=== PATIENT | female | born 1960 | race Caucasian/White ===

== ENCOUNTER → 2018-03-08 | Outpatient (CLI) | payer BC ==
[2015-05-30 16:43] VITALS: BMI 31.5
[~2018-03-08] MED LIST: BUPR300T55 PO; CHOL200025 PO; CRAN500C11 PO; KET10 PO; LISI-351 PO; LOR5/325 PO; MULT1CAP41 PO
[2018-03-08 10:33] LABS: PLATELET COUNT, AUTOMATED 382 K/uL (150-450)
[2018-03-08 10:51] LABS: LDL CHOLESTEROL 84 mg/dl
== END ==
LOC: LAB 10:15
PROVIDERS: ATTEND Nurse Practitioner Psychiatric/Mental Health
DX: Z00.00 Encounter for general adult medical examination without abnormal findings (principal)
CPT/HCPCS: 36415; 82040; 82247; 82310; 82374; 82435; 82465; 82565; 82947; 83718; 84075; 84132; 84155; 84295; 84443; 84450; 84460; 84478; 84520; 85025

== ENCOUNTER 2018-08-16 12:54 | Emergency (ER) | payer BC ==
[2015-05-30 16:43] VITALS: Wt 80.7 kg
--- NOTE | 2018-08-16 13:07 | ER Report ---
History and Physical Time Seen By MD: 13:07 HPI/ROS CHIEF COMPLAINT: Left lower quadrant abdominal pain HISTORY OF PRESENT ILLNESS: 57-year-old female patient presents to emergency room with complaint of left lower quadrant abdominal pain. Patient states that this started today. She states she went to see her primary care provider who evaluated her and referred her to the emergency room. Patient states that she has pain to the left lower quadrant. She states is nothing seems to make the pain worse or better. She states she does have worsening pain with urination. She denies having any nausea, vomiting or diarrhea. Patient states she did have a fever while she was seen at her primary care provider, 100.6. Patient this time is afebrile. REVIEW OF SYSTEMS: Respiratory: No cough, no dyspnea. Cardiovascular: No chest pain, no palpitations. Gastrointestinal: As noted above Musculoskeletal: No back pain. Allergies: Coded Allergies: No Known Drug Allergies (Verified , 07/24/09) Home Meds Active Scripts Hydrocodone Bit/Acetaminophen (HYDROCODON-ACETAMINOPHEN 5-325) 1 Each Tablet, 1 EACH PO Q4-6H PRN for PAIN, #12 TAB Prov:AXEL SEALS [facility] 08/16/18 Metronidazole (FLAGYL) 500 Mg Tablet, 500 MG PO TID, #30 TAB Prov:AXEL SEALSP 08/16/18 Ciprofloxacin Hcl 500 Mg Tab (CIPRO 500 MG TAB) 500 Mg Tablet, 500 MG PO BID, #20 TAB Prov:AXEL SEALS [facility] 08/16/18 Reported Medications Cranberry Extract (CRANBERRY) 500 Mg Capsule, 500 MG PO DAILY, CAPSULE 05/28/15 Cholecalciferol (Vitamin D3) (VITAMIN D3) 2,000 Unit Capsule, 2000 UNIT PO DAILY, CAPSULE 05/28/15 Lisinopril/Hydrochlorothiazide (LISINOPRIL-HCTZ 10-12.5 MG TAB) 1 Each Tablet, 0.5 TAB PO DAILY 05/28/15 Multivitamins W-Minerals (Multivitamin) 1 Cap Capsule, 1 CAP PO DAILY, 0 Refills 07/24/09 Bupropion Hcl (Wellbutrin Xl) 300 Mg Tab.sr.24h, 300 MG PO QDAY, 0 Refills 07/24/09 Discontinued Scripts Hydrocodone Bit/Acetaminophen (HYDROCODON-ACETAMINOPHEN 5-325) 1 Each Tablet, 1 EACH PO Q4-6H, #30 TAB Prov:TARUN LUCIANO MD 05/30/15 Ketorolac Tromethamine (KETOROLAC TROMETHAMINE) 10 Mg Tab, 10 MG PO Q6H, #14 TAB Prov:TARUN LUCIANO MD 05/30/15 Past Medical/Surgical History Patient has a past medical history of hypertension, UTI, generalized arthritis, degenerative disc disease, alcohol use, depression, anxiety. Patient has a surgical history of hysterectomy, abdominal surgery. Reviewed Nurses Notes: Yes Hx Smoking: No Smoking Status: Never Smoker Hx Alcohol Use: Yes Constitutional Vital Sign - Last 24 Hours 08/16/18 08/16/18 08/16/18 08/16/18 13:03 13:07 13:09 13:24 Temp 99.5 Pulse 126 126 ??? Resp 18 16 B/P (MAP) 152/108 152/108 (123) Pulse Ox 90 92 O2 Delivery Room Air 08/16/18 08/16/18 08/16/18 08/16/18 13:28 13:30 13:39 13:54 Pulse 102 ??? Resp 12 B/P (MAP) 109/85 (93) 105/77 (86) Pulse Ox 87 08/16/18 08/16/18 08/16/18 08/16/18 14:00 14:09 14:24 14:30 Pulse 94 91 Resp 13 12 B/P (MAP) 109/83 (92) 119/85 (96) Pulse Ox 87 90 08/16/18 14:39 Pulse 89 Resp 13 Pulse Ox 87 Physical Exam General Appearance: The patient is alert, has no immediate need for airway protection and no current signs of toxicity. Respiratory: Chest is non tender, lungs are clear to auscultation. Cardiac: regular rate and rhythm Gastrointestinal: Abdomen is soft and tender in the left lower quadrant, no masses, bowel sounds normal. Musculoskeletal: Neck: Neck is supple and non tender. Extremities have full range of motion and are non tender. Skin: No rashes or lesions. DIFFERENTIAL DIAGNOSIS: After history and physical exam differential diagnosis was considered for abdominal pain including but not limited to appendicitis, cholecystitis, gastritis and urinary tract infection. Included in the differential is kidney stone. Medical Decision Making Data Points Result Diagram: 08/16/18 1325 08/16/18 1325 Laboratory Hematology Test 08/16/18 13:00 08/16/18 13:25 Urine Color Yellow Urine Clarity Clear Urine pH 6.0 pH (4.8-9.5) Urine Specific Randolph 1.014 Urine Protein Negative mg/dL (NEGATIVE) Urine Glucose (UA) Negative mg/dL (NEGATIVE) Urine Ketones Trace mg/dL (NEGATIVE) Urine Blood Small (NEGATIVE) Urine Nitrite Negative (NEGATIVE) Urine Bilirubin Negative (NEGATIVE) Urine Urobilinogen Negative mg/dL (0.2-1.9) Urine Leukocyte Esterase Negative (NEGATIVE) Urine RBC <1 /HPF (0-2/HPF) Urine WBC <1 /HPF (0-5/HPF) Urine Squamous Epithelial Cells Many /LPF (</=FEW) Urine Bacteria Negative /HPF (NONE-FEW) Urine Mucus None /HPF (NONE-FEW) Red Blood Count 4.93 M/uL (4.17-5.56) Mean Corpuscular Volume 88.9 fL (80.0-96.0) Mean Corpuscular Hemoglobin 30.6 pg (26.0-33.0) Mean Corpuscular Hemoglobin Concent 34.4 g/dL (32.0-36.0) Red Cell Distribution Width 12.6 % (11.5-14.5) Mean Platelet Volume 7.3 fL (7.2-11.1) Neutrophils (%) (Auto) 77.3 % (39.4-72.5) Lymphocytes (%) (Auto) 14.0 % (17.6-49.6) Monocytes (%) (Auto) 7.7 % (4.1-12.4) Eosinophils (%) (Auto) 0.2 % (0.4-6.7) Basophils (%) (Auto) 0.8 % (0.3-1.4) Nucleated RBC Relative Count (auto) 0.0 /100WBC Neutrophils # (Auto) 15.0 K/uL (2.0-7.4) Lymphocytes # (Auto) 2.7 K/uL (1.3-3.6) Monocytes # (Auto) 1.5 K/uL (0.3-1.0) Eosinophils # (Auto) 0.0 K/uL (0.0-0.5) Basophils # (Auto) 0.2 K/uL (0.0-0.1) Nucleated RBC Absolute Count (auto) 0.01 K/uL Erythrocyte Sedimentation Rate 38 mm/HOUR (0-30) Sodium Level 138 mmol/L (137-145) Potassium Level 4.0 mmol/L (3.5-5.0) Chloride Level 104 mmol/L (98-107) Carbon Dioxide Level 23 mmol/L (22-31) Blood Urea Nitrogen 13 mg/dl (7-18) Creatinine 0.90 mg/dl (0.52-1.04) Glomerular Filtration Rate Calc > 60.0 Random Glucose 111 mg/dl (75-110) Calcium Level 10.0 mg/dl (8.4-10.2) Total Bilirubin 1.0 mg/dl (0.2-1.3) Aspartate Amino Transf (AST/SGOT) 17 U/L (0-35) Alanine Aminotransferase (ALT/SGPT) 20 U/L (0-56) Alkaline Phosphatase 92 U/L (0-126) C-Reactive Protein 5.0 mg/dl (<1.0) Total Protein 8.2 g/dl (6.3-8.2) Albumin 4.6 g/dl (3.5-5.0) Chemistry Test 08/16/18 13:00 08/16/18 13:25 Urine Color Yellow Urine Clarity Clear Urine pH 6.0 pH (4.8-9.5) Urine Specific Randolph 1.014 Urine Protein Negative mg/dL (NEGATIVE) Urine Glucose (UA) Negative mg/dL (NEGATIVE) Urine Ketones Trace mg/dL (NEGATIVE) Urine Blood Small (NEGATIVE) Urine Nitrite Negative (NEGATIVE) Urine Bilirubin Negative (NEGATIVE) Urine Urobilinogen Negative mg/dL (0.2-1.9) Urine Leukocyte Esterase Negative (NEGATIVE) Urine RBC <1 /HPF (0-2/HPF) Urine WBC <1 /HPF (0-5/HPF) Urine Squamous Epithelial Cells Many /LPF (</=FEW) Urine Bacteria Negative /HPF (NONE-FEW) Urine Mucus None /HPF (NONE-FEW) White Blood Count 19.4 k/uL (4.5-11.0) Red Blood Count 4.93 M/uL (4.17-5.56) Hemoglobin 15.1 g/dL (12.0-16.0) Hematocrit 43.9 % (34.0-47.0) Mean Corpuscular Volume 88.9 fL (80.0-96.0) Mean Corpuscular Hemoglobin 30.6 pg (26.0-33.0) Mean Corpuscular Hemoglobin Concent 34.4 g/dL (32.0-36.0) Red Cell Distribution Width 12.6 % (11.5-14.5) Platelet Count 417 K/uL (150-450) Mean Platelet Volume 7.3 fL (7.2-11.1) Neutrophils (%) (Auto) 77.3 % (39.4-72.5) Lymphocytes (%) (Auto) 14.0 % (17.6-49.6) Monocytes (%) (Auto) 7.7 % (4.1-12.4) Eosinophils (%) (Auto) 0.2 % (0.4-6.7) Basophils (%) (Auto) 0.8 % (0.3-1.4) Nucleated RBC Relative Count (auto) 0.0 /100WBC Neutrophils # (Auto) 15.0 K/uL (2.0-7.4) Lymphocytes # (Auto) 2.7 K/uL (1.3-3.6) Monocytes # (Auto) 1.5 K/uL (0.3-1.0) Eosinophils # (Auto) 0.0 K/uL (0.0-0.5) Basophils # (Auto) 0.2 K/uL (0.0-0.1) Nucleated RBC Absolute Count (auto) 0.01 K/uL Erythrocyte Sedimentation Rate 38 mm/HOUR (0-30) Glomerular Filtration Rate Calc > 60.0 Calcium Level 10.0 mg/dl (8.4-10.2) Total Bilirubin 1.0 mg/dl (0.2-1.3) Aspartate Amino Transf (AST/SGOT) 17 U/L (0-35) Alanine Aminotransferase (ALT/SGPT) 20 U/L (0-56) Alkaline Phosphatase 92 U/L (0-126) C-Reactive Protein 5.0 mg/dl (<1.0) Total Protein 8.2 g/dl (6.3-8.2) Albumin 4.6 g/dl (3.5-5.0) Urinalysis Test 08/16/18 13:00 Urine Color Yellow Urine Clarity Clear Urine pH 6.0 pH (4.8-9.5) Urine Specific Randolph 1.014 Urine Protein Negative mg/dL (NEGATIVE) Urine Glucose (UA) Negative mg/dL (NEGATIVE) Urine Ketones Trace mg/dL (NEGATIVE) Urine Blood Small (NEGATIVE) Urine Nitrite Negative (NEGATIVE) Urine Bilirubin Negative (NEGATIVE) Urine Urobilinogen Negative mg/dL (0.2-1.9) Urine Leukocyte Esterase Negative (NEGATIVE) Urine RBC <1 /HPF (0-2/HPF) Urine WBC <1 /HPF (0-5/HPF) Urine Squamous Epithelial Cells Many /LPF (</=FEW) Urine Bacteria Negative /HPF (NONE-FEW) Urine Mucus None /HPF (NONE-FEW) EKG/Imaging Imaging EXAMINATION: CT abdomen and pelvis without IV contrast HISTORY: Left lower quadrant pain. TECHNIQUE: Axial CT images of the abdomen and pelvis were obtained without IV contrast, with coronal and sagittal 2D reconstructed images. One of the following dose optimization techniques was utilized in the performance of this exam: Automated exposure control; adjustment of the mA and/or kV according to the patient's size; or use of an iterative reconst ruction technique. Specific details can be referenced in the facility's radiology CT exam operational policy. COMPARISON: 07/24/2009. FINDINGS: Evaluation of the solid and viscus parenchymal organs is limited without the benefit of IV contrast. Liver: Negative. Gallbladder and bile ducts: Negative. Spleen: Negative. Pancreas: Negative. Adrenal glands: Negative. Kidneys: Negative. No urinary calculi or hydronephrosis. Bowel and peritoneum: The small bowel and colon are normal in caliber. No bowel obstruction. Scattered colonic diverticulosis along the descending and sigmoid colon. There is segmental wall thickening and pericolonic stranding along the lower descending colon in the left lower abdomen, compatible with diverticulitis. No pericolonic abscess or fluid collection. No free fluid or free intraperitoneal air. The appendix is surgically absent. Pelvic structures: Hysterectomy. Lymph node assessment: Negative. Vessels: Negative. Musculoskeletal: Stable chronic compression fracture of T11. Scattered degenerative changes along the spine. No acute osseous findings. Body wall: Negative. Lung bases: Negative. IMPRESSION: 1. Changes of uncomplicated diverticulitis along the lower descending colon. No evidence of pericolonic abscess or free intraperitoneal air. 2. No other acute intra-abdominal findings. 3. Prior appendectomy and hysterectomy. Report Dictated By: Luis Martines MD at 08/16/2018 2:26 PM Report E-Signed By: Luis Martines MD at 08/16/2018 2:34 PM ED Course/Re-evaluation ED Course Patient was admitted to exam room, history and physical were obtained. Differential diagnoses were considered. On examination patient had tenderness in the left lower quadrant, heart was regular, lungs were clear. An IV was started, CBC, CMP, urinalysis were obtained. There was a slight amount of blood in the urine. Maybe believe that we could very well be looking at a kidney stone. As a result a CT scan of the abdomen and pelvis was done without contrast. Patient did have an elevated white count of 19,[address] scan was positive for an acute diverticulitis. As a result of that I discussed the findings with patient. We will go ahead and start her on some antibiotics. This does explain the fever that she had had prior to coming to the emergency room. We will also give her limited supply of pain medication. Patient states that she does not particularly like the medication and may not take it. I informed her that that was fine. Patient to follow-up with her primary care provider a week. She verbalized understanding and agreement with plan. Decision to Disposition Date: Aug 16, 2018 Decision to Disposition Time: 14:57 Depart Departure Latest Vital Signs Vital Signs Date Time Temp Pulse Resp B/P (MAP) Pulse Ox O2 Delivery O2 Flow Rate FiO2 08/16/18 14:39 89 13 87 08/16/18 14:30 119/85 (96) 08/16/18 13:03 99.5 Room Air Impression: Primary Impression: Diverticulitis Condition: Improved Disposition: HOME OR SELF-CARE Referrals: TIMOTEO CAMPOS (PCP) New Scripts Hydrocodone Bit/Acetaminophen (HYDROCODON-ACETAMINOPHEN 5-325) 1 Each Tablet 1 EACH PO Q4-6H PRN for PAIN, #12 TAB Prov: AXEL [facility]ALS 08/16/18 Metronidazole (FLAGYL) 500 Mg Tablet 500 MG PO TID, #30 TAB Prov: AXEL [facility]ALS 08/16/18 Ciprofloxacin Hcl 500 Mg Tab (CIPRO 500 MG TAB) 500 Mg Tablet 500 MG PO BID, #20 TAB Prov: AXEL SEALS 08/16/18 Patient Instructions: Diverticulitis (ED) Additional Instructions: Increase fluid intake. Get plenty of rest. Limit activity by pain. Take the medication as prescribed. Follow up with your primary care provider in the next 3-4 days. Return to the ER if condition worsens. AXEL SEALS Aug 16, 2018 13:07
[2018-08-16] MEDS ORDERED: NS(*) 0.9% 1000 ML BAG 1,000 ML IV ONE (13:14)
[2018-08-16] MEDS ORDERED: KETOROLAC 15 MG/ML VIAL IVP ONE (13:15)
[2018-08-16 13:55] LABS: PLATELET COUNT, AUTOMATED 417 K/uL (150-450)
[2018-08-16 14:30] VITALS: BP 119/85
--- NOTE | 2018-08-16 14:38 | RADIOLOGY IMAGING REPORT ---
FACILITY: [facility] PATIENT NAME: Scot Choe : 1960 MR: [id number] V: [id number] EXAM DATE: ORDERING PHYSICIAN: AXEL SEALS TECHNOLOGIST: Location: [facility] Patient: Scot Choe : 1960 Visit/Account:[id number] Date of Sevice: 08/16/2018 EXAMINATION: CT abdomen and pelvis without IV contrast HISTORY: Left lower quadrant pain. TECHNIQUE: Axial CT images of the abdomen and pelvis were obtained without IV contrast, with quinones l and sagittal 2D reconstructed images. One of the following dose optimization techniques was utilized in the performance of this exam: Autom ated exposure control; adjustment of the mA and/or kV according to the patient's size; or use of an i terative reconstruction technique. Specific details can be referenced in the facility's radiology C T exam operational policy. COMPARISON: 07/24/2009. FINDINGS: Evaluation of the solid and viscus parenchymal organs is limited without the benefit of IV contrast. Liver: Negative. Gallbladder and bile ducts: Negative. Spleen: Negative. Pancreas: Negative. Adrenal glands: Negative. Kidneys: Negative. No urinary calculi or hydronephrosis. Bowel and peritoneum: The small bowel and colon are normal in caliber. No bowel obstruction. Scatter ed colonic diverticulosis along the descending and sigmoid colon. There is segmental wall thickening and pericolonic stranding along the lower descending colon in the left lower abdomen, compatible with diverticulitis. No pericolonic abscess or fluid collection. No free fluid or free intraperitoneal ai r. The appendix is surgically absent. Pelvic structures: Hysterectomy. Lymph node assessment: Negative. Vessels: Negative. Musculoskeletal: Stable chronic compression fracture of T11. Scattered degenerative changes along t he spine. No acute osseous findings. Body wall: Negative. Lung bases: Negative. IMPRESSION: 1. Changes of uncomplicated diverticulitis along the lower descending colon. No evidence of pericolon ic abscess or free intraperitoneal air. 2. No other acute intra-abdominal findings. 3. Prior appendectomy and hysterectomy. Report Dictated By: Luis Martines MD at 08/16/2018 2:26 PM Report E-Signed By: Luis Martines MD at 08/16/2018 2:34 PM WSN:[id number]
[2018-08-16] MEDS ORDERED: CIPR-344 PO (14:55)
[2018-08-16] MEDS ORDERED: HYDR-385 PO (14:55)
[2018-08-16] MEDS ORDERED: METR-1 PO (14:55)
== END 2018-08-16 15:12 | disposition home or self-care (01) ==
LOC: ER 13:19
DX: K57.92 Diverticulitis of intestine, part unspecified, without perforation or abscess without bleeding (principal)
CPT/HCPCS: 74176; 81001; 85025; 85651; 86140; 96361; 96374; 99284; J1885; J7030; 82040; 82247; 82310; 82374; 82435; 82565; 82947; 84075; 84132; 84155; 84295; 84450; 84460; 84520

== ENCOUNTER 2018-11-18 00:57 | Day surgery (SDC) | payer BC ==
[2015-05-30 16:43] VITALS: Ht 160 cm; Wt 73.9 kg
[~2018-11-18] VITALS: Ht 160 cm; Wt 73.9 kg
[~2018-11-18 00:57] MED LIST changes: +CIPR-344 PO; +HYDR-385 PO; +METR-1 PO; +OMEG-36 PO
[2018-11-18] MEDS ORDERED: PROPOFOL EMUL(*) 10MG/ML 20 ML 40 ML ONE (08:18)
[2018-11-18] MEDS ORDERED: LIDOCAINE MPF 1% 5 ML VIAL ONE (08:18)
[2018-11-18 09:06] VITALS: BP 124/101
[2018-11-18] MEDS ORDERED: LIDOCAINE/SOD BICARB 8.4% SYR ID ONE (09:10)
[2018-11-18] MEDS ORDERED: NORMOSOL R SOLN(*) 1000 ML BAG 1,000 ML IV PRN (09:10)
[2018-11-18] MEDS ORDERED: ONDANSETRON 4 MG/2 ML VIAL ONE (09:40)
[2018-11-18 10:04] VITALS: BP 101/67
[2018-11-18 10:34] VITALS: BP 112/78
[2018-11-18 10:50] VITALS: BP 119/88
[2018-11-18 10:51] VITALS: BP 110/77
== END 2018-11-18 11:30 | disposition home or self-care (01) ==
LOC: OR 00:57
PROVIDERS: ATTEND Internal Medicine Gastroenterology
DX: Z12.11 Encounter for screening for malignant neoplasm of colon (principal); K64.8 Other hemorrhoids; K57.30 Diverticulosis of large intestine without perforation or abscess without bleeding; Z87.19 Personal history of other diseases of the digestive system; Z80.0 Family history of malignant neoplasm of digestive organs
CPT/HCPCS: 00812; 45378; J2001; J2405; J2704